=== PATIENT | female | born 1985 | race Caucasian/White ===

== ENCOUNTER 2017-04-05 22:09 | Emergency (ER) | payer SELFPAY ==
[2017-04-06 00:33] VITALS: BP 135/86
[2017-04-06] MEDS ORDERED: Ibuprofen TAB* 600 MG PO ONE (01:22)
--- NOTE | 2017-04-06 05:44 | ED ---
Mere Reza Thomas, scribed for Jacobo Vivas on 04/06/17 at 0120 . Lower Extremity - HPI Summary HPI Summary: The pt is a 32 y/o F presenting to the ED c/o R knee pain s/p an accidental fall from a ladder at her work. This injury occurred three hours ago. The pain is aggravated by palpation and movement. It is alleviated by nothing. She has taken nothing for the pain prior to arrival. She rates the pain 8/10. Pt denies LOC and head injury. The patient is accompanied by a male. 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 Negative: Other - NEGATIVE: LOC, head trauma Aggravating Factor(s): Movement, Other - Palpation Alleviating Factor(s): Nothing - Allergies/Home Medications Allergies/Adverse Reactions: Allergies Allergy/AdvReac Type Severity Reaction Status Date / Time No Known Allergies Allergy Verified 04/05/17 22:14 PMH/Surg Hx/FS Hx/Imm Hx Previously Healthy: No Endocrine/Hematology History: Denies: Hx Diabetes Sensory History: Reports: Other Sensory Impairments - Hx eye disease - Surgical History Surgery Procedure, Year, and Place: Eye surgery - Immunization History Date of Tetanus Vaccine: utd Date of Influenza Vaccine: unk Infectious Disease History: No Infectious Disease History: Denies: Traveled Outside the [place] in Last 30 Days - Family History Known Family History: Positive: Other - When asked, she responds "nothing" - Social History Alcohol Use: Occasionally Hx Substance Use: No Substance Use Type: Reports: None Hx Tobacco Use: Yes Smoking Status (MU): Heavy Every Day Tobacco Smoker Review of Systems Positive: Other - R knee pain Neurological: Other - NEGATIVE: LOC, head trauma All Other Systems Reviewed And Are Negative: Yes Physical Exam - Summary Physical Exam Summary: Appearance: Well appearing, no pain distress. Skin: Warm, dry, reflects adequate perfusion. Head/face: Normal. Eyes: EOMI, RUDY. ENT: Normal. Neck: Supple, nontender. Respiratory: CTA, breath sounds present. Cardiovascular: RRR, pulses symmetrical. Abdomen: Nontender, soft. Bowel: Present. Musculoskeletal: Strength/ROM intact. She has tenderness over her right knee. Neurovascular is intact. ROM is present. Neuro: Normal, sensory motor intact, A&Ox3. Triage Information Reviewed: Yes Vital Signs On Initial Exam: Initial Vitals Temp Pulse Resp BP Pulse Ox 98.3 F 90 14 131/86 98 04/05/17 22:12 04/05/17 22:12 04/05/17 22:12 04/05/17 22:12 04/05/17 22:12 Vital Signs Reviewed: Yes Diagnostics - Vital Signs Vital Signs Temp Pulse Resp BP Pulse Ox 04/06/17 00:32 98.9 F 96 14 135/86 96 04/05/17 22:12 98.3 F 90 14 131/86 98 - Laboratory Lab Statement: Any lab studies that have been ordered have been reviewed, and results considered in the medical decision making process. - Radiology Knee XR Xray Interpretation: No Acute Changes - No Fx. Radiology Interpretation Completed By: ED Physician Lower Extremity Course/Dx - Course Assessment/Plan: Patient complains of R knee pain after a fall from a laddder. Neurovascular intact, ROM is present, and no osseous injury on X-Ray. She will follow up with orthopedics. - Diagnoses Provider Diagnoses: Knee pain Discharge - Discharge Plan Condition: Stable Disposition: HOME Prescriptions: Ibuprofen TAB* [Motrin TAB* 600 MG] 600 mg PO Q8H PRN #20 tab MDD 3 PRN Reason: Pain Patient Education Materials: Knee Pain (ED) Forms: *Work Release Referrals: Chele LAWRENCE,[place] [Medical Doctor] - 3 Days Additional Instructions: Follow up with your primary care provider in three days. Return to the emergency room for any new or worsening symptoms. The documentation as recorded by the Mere blandon Thomas accurately reflects the service I personally performed and the decisions made by , Jacobo Vivas.
--- NOTE | 2017-04-06 08:08 | RAD ---
INDICATION: Right knee injury COMPARISON: None TECHNIQUE: AP, lateral, tunnel, and sunrise views were obtained. FINDINGS: There are no acute bony findings. The knee articulates normally. There is no significant effusion. IMPRESSION: NO ACUTE BONY CHANGE.
== END 2017-04-06 01:45 | disposition home or self-care (01) ==
LOC: ED 22:09
DX: M25.561 Pain in right knee (principal); F17.210 Nicotine dependence, cigarettes, uncomplicated
CPT/HCPCS: 99282; A9270-GY